=== PATIENT | male | born 1960 | race Hispanic/Latino ===

== ENCOUNTER 2021-04-24 17:18 | Inpatient (IN) | payer SELFPAY ==
[~2021-04-24] VITALS: Ht 170.2 cm; Wt 81.6 kg
[~2021-04-24 17:18] MED LIST: 0.9%NACL 50ML 50 ML IV ONE; ALTEPLASE 100 MG VIAL IVP ONE
[2021-04-24] MEDS: ALTEPLASE 100 MG VIAL IV SCH (17:58)
[2021-04-24 18:00] LABS: HEMATOCRIT 39.3 % (42-54); MEAN CORPUSCULAR HEMOGLOBIN 29.8 pg (27.0-33.0); MEAN CORPUSCULAR HGB CONC 34.9 g/dL (32.0-36.0); MEAN CORPUSCULAR VOLUME 85.4 fL (79-99); PLATELET COUNT (AUTO) 200 K/uL (130-400); RED CELL DISTRIBUTION WIDTH 12.9 % (11.0-15.5); WHITE BLOOD COUNT (AUTO) 10.2 K/uL (4.8-10.8)
[2021-04-24 18:21] LABS: POTASSIUM 4.1 mmol/L (3.5-5.1)
[2021-04-24 18:22] LABS: INR 1.05 (0.85-1.15); PROTHROMBIN TIME 11.4 SEC (9.6-11.6)
[2021-04-24 18:23] LABS: PARTIAL THROMBOPLASTIN TIME 27.9 SEC (26.3-35.5)
[2021-04-24] MEDS ORDERED: IOHEXOL-350 75 ML VIAL IV ONE (18:29)
[2021-04-24 18:36] LABS: ALBUMIN 3.5 g/dL (3.5-5.0); BILIRUBIN,TOTAL 0.3 mg/dL (0.2-1.0)
[2021-04-24 18:39] LABS: BAND NEUTROPHILS % (MANUAL) 9 % (0-2); EOSINOPHILS % (MANUAL) 1 % (1-6); LYMPHOCYTES % (MANUAL) 26 % (22-44); MAN.DIFF COMMENT-IMPRESSION MANUAL DIFFERENTIAL; MONOCYTES % (MANUAL) 5 % (2-9); REACTIVE LYMPHOCYTES 4 % (0-0); SEGMENTED NEUTROPHILS % 55 % (40-70)
[2021-04-24] MEDS ORDERED: ACETAMINOPHEN 325 MG TAB PO PRN ×2 (20:00)
[2021-04-24] MEDS ORDERED: LACTULOSE 20 GM/30 ML UDCUP PO PRN (20:00)
[2021-04-24] MEDS ORDERED: ONDANSETRON 4MG INJ IV PRN (20:00)
[2021-04-24 20:22] LABS: CHOLESTEROL 127 mg/dL (<200); HDL CHOLESTEROL 33 mg/dL (29-71); LDL DIRECT 76 mg/dL (0-99); TRIGLYCERIDES 127 mg/dL (30-200)
[2021-04-24] MEDS: ATORVASTATIN 20 MG TABLET PO SCH (21:00)
[2021-04-24] MEDS: INSULIN GLARGINE 100 UNITS/ML 10 ML VIAL SQ SCH (21:00)
[2021-04-24] MEDS: INSULIN HUMULIN R 100 UNIT/ML 3ML SQ SCH (21:00)
[2021-04-24] MEDS: LABETALOL 20MG SYG IV PRN (21:13)
[2021-04-24] MEDS: FAMOTIDINE 20MG VIAL IV SCH (21:26)
[2021-04-24] MEDS: LACTATED RINGERS 1000ML 1,000 ML IV SCH (21:26)
[2021-04-24 22:35] LABS: HEMOGLOBIN A1C 9.8 % (4.0-6.0)
[2021-04-25] MEDS: LABETALOL 20MG SYG IV PRN ×2 (05:04→12:25)
[2021-04-25] MEDS: INSULIN HUMULIN R 100 UNIT/ML 3ML SQ SCH ×7 (07:30→21:00)
[2021-04-25] MEDS: FAMOTIDINE 20MG VIAL IV SCH ×2 (09:12→21:08)
[2021-04-25] MEDS: LACTATED RINGERS 1000ML 1,000 ML IV SCH ×2 (09:12→21:10)
[2021-04-25 13:50] LABS: APPEARANCE,URINE Clear (CLEAR); BILIRUBIN,URINE Negative (NEGATIVE); COLOR,URINE Yellow (YELLOW); GLUCOSE, URINE (UA) >=1000 mg/dL (NEGATIVE); KETONES,URINE 15 mg/dL (NEGATIVE); LEUKOCYTE ESTERASE ,URINE Negative (NEGATIVE); NITRATE,URINE Negative (NEGATIVE); OCCULT BLOOD,URINE Negative (NEGATIVE); PROTEIN,URINE POS 1+ mg/dL (NEGATIVE); UROBILINOGEN,URINE 0.2 mg/dL (0.2-1.0)
[2021-04-25 14:07] LABS: BACTERIA,URINE Rare /HPF (None Seen); RBC,URINE 0-1 /HPF (0-1); SQUAMOUS EPITHELIAL CELL,UR Rare /HPF (0-2); WBC,URINE 0-1 /HPF (0-1)
[2021-04-25] MEDS: ALTEPLASE 100 MG VIAL IV SCH (18:22)
[2021-04-25] MEDS: INSULIN GLARGINE 100 UNITS/ML 10 ML VIAL SQ SCH (21:09)
[2021-04-25] MEDS: ATORVASTATIN 20 MG TABLET PO SCH (21:09)
[2021-04-26 05:39] LABS: BASOPHILS % (AUTO) 0.5 % (0.0-5.0); EOSINOPHILS % (AUTO) 1.1 % (0.0-8.0); HEMATOCRIT 39.1 % (42-54); LYMPHOCYTES % (AUTO) 32.5 % (21.0-51.0); MEAN CORPUSCULAR HEMOGLOBIN 29.9 pg (27.0-33.0); MEAN CORPUSCULAR HGB CONC 34.5 g/dL (32.0-36.0); MEAN CORPUSCULAR VOLUME 86.5 fL (79-99); MONOCYTES % (AUTO) 10.3 % (3.0-13.0); NEUTROPHILS % (AUTO) 55.2 % (40.0-77.0); PLATELET COUNT (AUTO) 193 K/uL (130-400); RED BLOOD CELL COUNT(AUTO) 4.52 MIL/uL (4.50-6.20); RED CELL DISTRIBUTION WIDTH 13.1 % (11.0-15.5); WHITE BLOOD COUNT (AUTO) 10.5 K/uL (4.8-10.8)
[2021-04-26 05:57] LABS: ALBUMIN 3.1 g/dL (3.5-5.0); BILIRUBIN,TOTAL 0.5 mg/dL (0.2-1.0); POTASSIUM 3.9 mmol/L (3.5-5.1); TOTAL PROTEIN, SERUM 6.4 g/dL (6.0-8.3)
[2021-04-26] MEDS: FAMOTIDINE 20MG VIAL IV SCH ×2 (09:00→21:06)
[2021-04-26] MEDS: ASPIRIN 325MG EC TAB PO SCH (11:17)
[2021-04-26] MEDS: INSULIN HUMULIN R 100 UNIT/ML 3ML SQ SCH ×7 (11:30→21:00)
[2021-04-26] MEDS: LACTATED RINGERS 1000ML 1,000 ML IV SCH (13:29)
[2021-04-26 15:00] VITALS: BP 166/70
[2021-04-26] MEDS: ALTEPLASE 100 MG VIAL IV SCH (16:32)
[2021-04-26 20:00] VITALS: BP 165/61
[2021-04-26] MEDS: ATORVASTATIN 20 MG TABLET PO SCH (21:06)
[2021-04-26] MEDS: INSULIN GLARGINE 100 UNITS/ML 10 ML VIAL SQ SCH (21:14)
[2021-04-26 23:32] VITALS: BP 154/60
[2021-04-27 03:59] LABS: BASOPHILS % (AUTO) 0.4 % (0.0-5.0); EOSINOPHILS % (AUTO) 1.4 % (0.0-8.0); HEMATOCRIT 37.9 % (42-54); LYMPHOCYTES % (AUTO) 38.5 % (21.0-51.0); MEAN CORPUSCULAR VOLUME 85.2 fL (79-99); MONOCYTES % (AUTO) 11.4 % (3.0-13.0); NEUTROPHILS % (AUTO) 47.9 % (40.0-77.0); PLATELET COUNT (AUTO) 185 K/uL (130-400); RED BLOOD CELL COUNT(AUTO) 4.45 MIL/uL (4.50-6.20); RED CELL DISTRIBUTION WIDTH 13.1 % (11.0-15.5); WHITE BLOOD COUNT (AUTO) 10.2 K/uL (4.8-10.8)
[2021-04-27 04:00] VITALS: BP 175/67
[2021-04-27 04:16] LABS: ALBUMIN 2.9 g/dL (3.5-5.0); BILIRUBIN,TOTAL 0.4 mg/dL (0.2-1.0); CREATININE 0.9 mg/dL (0.5-1.5); POTASSIUM 3.8 mmol/L (3.5-5.1); TOTAL PROTEIN, SERUM 6.1 g/dL (6.0-8.3)
[2021-04-27] MEDS: LACTATED RINGERS 1000ML 1,000 ML IV SCH ×2 (04:48→14:40)
[2021-04-27] MEDS: INSULIN HUMULIN R 100 UNIT/ML 3ML SQ SCH ×7 (07:24→20:47)
[2021-04-27 08:00] VITALS: BP 158/67
[2021-04-27] MEDS: ASPIRIN 325MG EC TAB PO SCH (09:39)
[2021-04-27] MEDS: FAMOTIDINE 20MG VIAL IV SCH ×2 (09:39→20:48)
[2021-04-27 11:53] VITALS: BP 145/59
[2021-04-27 16:00] VITALS: BP 178/74
[2021-04-27] MEDS: ALTEPLASE 100 MG VIAL IV SCH (17:36)
[2021-04-27 19:41] VITALS: BP 168/68
[2021-04-27] MEDS: ATORVASTATIN 20 MG TABLET PO SCH (20:48)
[2021-04-27] MEDS: INSULIN GLARGINE 100 UNITS/ML 10 ML VIAL SQ SCH (21:17)
[2021-04-27 23:57] VITALS: BP 168/71
[2021-04-28 04:19] VITALS: BP 162/67
[2021-04-28 05:22] LABS: BASOPHILS % (AUTO) 0.4 % (0.0-5.0); EOSINOPHILS % (AUTO) 1.7 % (0.0-8.0); HEMATOCRIT 37.9 % (42-54); LYMPHOCYTES % (AUTO) 35.4 % (21.0-51.0); MEAN CORPUSCULAR HEMOGLOBIN 29.1 pg (27.0-33.0); MEAN CORPUSCULAR VOLUME 85.4 fL (79-99); MONOCYTES % (AUTO) 12.5 % (3.0-13.0); NEUTROPHILS % (AUTO) 49.7 % (40.0-77.0); PLATELET COUNT (AUTO) 190 K/uL (130-400); RED BLOOD CELL COUNT(AUTO) 4.44 MIL/uL (4.50-6.20); RED CELL DISTRIBUTION WIDTH 12.9 % (11.0-15.5); WHITE BLOOD COUNT (AUTO) 10.2 K/uL (4.8-10.8)
[2021-04-28 05:47] LABS: BILIRUBIN,TOTAL 0.4 mg/dL (0.2-1.0); CREATININE 0.9 mg/dL (0.5-1.5); POTASSIUM 3.6 mmol/L (3.5-5.1); TOTAL PROTEIN, SERUM 6.2 g/dL (6.0-8.3)
[2021-04-28] MEDS: INSULIN HUMULIN R 100 UNIT/ML 3ML SQ SCH ×7 (06:33→19:36)
[2021-04-28 08:00] VITALS: BP 156/64
[2021-04-28] MEDS: ASPIRIN 325MG EC TAB PO SCH (08:03)
[2021-04-28] MEDS: FAMOTIDINE 20MG VIAL IV SCH ×2 (08:03→19:34)
[2021-04-28 11:49] VITALS: BP 178/66
[2021-04-28 16:00] VITALS: BP 180/76
[2021-04-28] MEDS: ATORVASTATIN 20 MG TABLET PO SCH (19:36)
[2021-04-28 19:41] VITALS: BP 179/67
[2021-04-28] MEDS: INSULIN GLARGINE 100 UNITS/ML 10 ML VIAL SQ SCH (19:46)
[2021-04-28 23:54] VITALS: BP 153/77
[2021-04-29 03:28] VITALS: BP 165/76
[2021-04-29] MEDS: INSULIN HUMULIN R 100 UNIT/ML 3ML SQ SCH ×6 (05:29→16:37)
[2021-04-29 05:59] LABS: BASOPHILS % (AUTO) 0.5 % (0.0-5.0); EOSINOPHILS % (AUTO) 1.8 % (0.0-8.0); HEMATOCRIT 37.6 % (42-54); LYMPHOCYTES % (AUTO) 32.9 % (21.0-51.0); MEAN CORPUSCULAR HEMOGLOBIN 29.1 pg (27.0-33.0); MEAN CORPUSCULAR HGB CONC 33.8 g/dL (32.0-36.0); MONOCYTES % (AUTO) 12.1 % (3.0-13.0); NEUTROPHILS % (AUTO) 52.3 % (40.0-77.0); PLATELET COUNT (AUTO) 181 K/uL (130-400); RED BLOOD CELL COUNT(AUTO) 4.37 MIL/uL (4.50-6.20); RED CELL DISTRIBUTION WIDTH 12.8 % (11.0-15.5); WHITE BLOOD COUNT (AUTO) 9.6 K/uL (4.8-10.8)
[2021-04-29 06:34] LABS: ALBUMIN 2.9 g/dL (3.5-5.0); BILIRUBIN,TOTAL 0.4 mg/dL (0.2-1.0); CREATININE 0.9 mg/dL (0.5-1.5); POTASSIUM 3.5 mmol/L (3.5-5.1); TOTAL PROTEIN, SERUM 6.1 g/dL (6.0-8.3)
[2021-04-29 08:00] VITALS: BP 147/63
[2021-04-29] MEDS: ASPIRIN 325MG EC TAB PO SCH (09:07)
[2021-04-29] MEDS: FAMOTIDINE 20MG VIAL IV SCH (09:07)
[2021-04-29 11:42] VITALS: BP 143/54
[2021-04-29 16:00] VITALS: BP 169/60
[2021-04-29] MEDS ORDERED: ASPI-891 PO (18:10)
[2021-04-29] MEDS ORDERED: ATOR20TA65 PO (18:10)
[2021-04-29] MEDS ORDERED: INSLAN SQ (18:10)
[2021-04-29] MEDS ORDERED: INSU100V3 SQ (18:10)
== END 2021-04-29 20:09 | disposition home or self-care (01) | DRG 62 ==
LOC: EDH 17:18 → EDHIP 17:19 → 4BH 04-26 12:09
PROVIDERS: ADMIT Internal Medicine; ATTEND Internal Medicine
DX: I63.9 Cerebral infarction, unspecified (principal); G81.91 Hemiplegia, unspecified affecting right dominant side; E11.9 Type 2 diabetes mellitus without complications; G51.0 Bell's palsy; I10 Essential (primary) hypertension; R29.704 NIHSS score 4; Z72.0 Tobacco use; Z79.84 Long term (current) use of oral hypoglycemic drugs; Z90.49 Acquired absence of other specified parts of digestive tract; Z82.49 Family history of ischemic heart disease and other diseases of the circulatory system
CPT/HCPCS: 36415; 70450; 70496; 70498; 70551; 71045; 80053; 80061; 81001; 82550; 82948; 83036; 83721; 83874; 84484; 85025; 85610; 85730; 92522; 92610; 93005; 93306; 93356; 93880; 97039; G0378; J1815; J2997; J3490; J7120; Q9967